=== PATIENT | female | born 1985 | race African-American/Black ===

== ENCOUNTER 2019-07-05 16:46 | Emergency (ER) | payer MEDICAID ==
[~2019-07-05] VITALS: Ht 152.4 cm; Wt 77.2 kg
[2019-07-05 16:51] VITALS: BP 159/71
--- NOTE | 2019-07-05 16:55 | NUR ---
PT AMBULATED TO BED 12.
--- NOTE | 2019-07-05 17:08 | NUR ---
DR. FORBES EVALUATING PT AT BEDSIDE.
[2019-07-05] MEDS ORDERED: ONDANSETRON 4 MG ODT PO ONE (17:10)
--- NOTE | 2019-07-05 17:11 | NUR ---
33/F C/O DIZZINESS AND NONBLOODY N/V X 3 HOURS. STATES EATING SOME CHIPS AND COFFEE BEFORE THIS. DENIES PAIN. STATES VOIDED EARLIER AND CANNOT GIVE URINE SAMPLE AT THIS TIME. HX- OCCASIONAL HBP RX- NONE
--- NOTE | 2019-07-05 17:57 | NUR ---
PT STATES TRIED VOIDING 2X BUT COULD NOT. STATES WILL TRY AGAIN SOON.
--- NOTE | 2019-07-05 18:05 | NUR ---
PT IN BATHROOM ATTEMPTING TO GIVE URINE SAMPLE.
--- NOTE | 2019-07-05 18:07 | NUR ---
DR. FORBES AWARE PT STILL ATTEMPTING TO GIVE URINE SAMPLE FOR URINE PREG.
--- NOTE | 2019-07-05 18:15 | NUR ---
PT STATES SHE FEELS "A LOT BETTER" AFTER THE ZOFRAN. NO MORE N/V.
--- NOTE | 2019-07-05 18:19 | NUR ---
DR. FORBES SPEAKING TO PT AT BEDSIDE.
[2019-07-05 18:55] VITALS: BP 153/84
== END 2019-07-05 18:52 | disposition home or self-care (01) ==
LOC: MED 16:46
DX: R11.2 Nausea with vomiting, unspecified (principal); R42 Dizziness and giddiness; Z88.5 Allergy status to narcotic agent; Z88.6 Allergy status to analgesic agent
CPT/HCPCS: 81025; 99283; Q0162